=== PATIENT | female | born 2000 | race Caucasian/White ===

== ENCOUNTER 2020-02-09 09:22 | Emergency (ER) | payer OTHER ==
[~2020-02-09] VITALS: Ht 154.9 cm; Wt 65.8 kg
[2020-02-09 09:30] VITALS: BP_SYST 135
[2020-02-09] MEDS ORDERED: DIPH-TET-PERTUS Vaccine 0.5 ML VIAL (ADACEL) I.M. ONE (10:00)
[2020-02-09] MEDS ORDERED: LIDOCAINE MPF 1% 50 MG/5 ML AMP INJ ONE (10:00)
[2020-02-09] MEDS ORDERED: LIDOCAINE 1% 10 MG/ML, 20 ML MDV INJ ONE (10:15)
[2020-02-09] MEDS ORDERED: LIDOCAINE 1%, 20 ML MDV 20 ML ONE (10:27)
[2020-02-09 10:50] VITALS: BP_SYST 135
== END 2020-02-09 10:51 | disposition home or self-care (01) ==
LOC: SED 09:22
DX: S61.412A Laceration without foreign body of left hand, initial encounter (principal); Z88.0 Allergy status to penicillin; Z88.6 Allergy status to analgesic agent; W26.8XXA Contact with other sharp object(s), not elsewhere classified, initial encounter; Y93.89 Activity, other specified; Y92.89 Other specified places as the place of occurrence of the external cause; Y99.8 Other external cause status
CPT/HCPCS: 12001; 90471; 99283; 90715; J2001 ×2

== ENCOUNTER 2020-02-19 11:14 | Emergency (ER) | payer OTHER ==
[~2020-02-19] VITALS: Ht 154.9 cm; Wt 65.8 kg
[2020-02-19 11:15] VITALS: BP_SYST 112
[2020-02-19 11:33] VITALS: BP_SYST 112
== END 2020-02-19 11:35 | disposition home or self-care (01) ==
LOC: SED 11:14
DX: S61.412D Laceration without foreign body of left hand, subsequent encounter (principal); Z88.0 Allergy status to penicillin; Z88.6 Allergy status to analgesic agent; X58.XXXD Exposure to other specified factors, subsequent encounter
CPT/HCPCS: 99281